=== PATIENT | female | born 1945 | race American Indian/Alaskan Native ===

== ENCOUNTER 2020-04-03 14:37 | Emergency (ER) | payer MEDICARE ==
[2020-04-03] MEDS ORDERED: ONDANSETRON 4 MG/2 ML INJ ONE (15:11)
[2020-04-03] MEDS ORDERED: ONDANSETRON 4 MG/2 ML INJ IV ONE (15:31)
[2020-04-03] MEDS ORDERED: HYDROmorphone 1 MG/1 ML INJ IV ONE ×2 (15:44→17:16)
--- NOTE | 2020-04-03 15:54 | Emergency Department Report ---
HPI - General Chief Complaint: Abdominal Pain Time Seen by Provider: 04/03/20 15:39 - HPI HPI: Room 6 The patient is a 74-year-old female presents with a chief complaint of abdominal pain. The patient states her symptoms began today while at the same she felt pain rise up from her abdomen and back. Patient states the pain is been constant and severe associated with nausea and vomiting. Patient denies fever or diarrhea. ED Past Medical Hx - Past Medical History Previous Medical History?: No - Surgical History Past Surgical History?: No - Family History Family history: no significant - Social History Smoking Status: Current Every Day Smoker Substance Use Type: None (Denies illicit drug use), Alcohol (Occasional) ED Review of Systems ROS: Stated complaint: ABD PAIN Other details as noted in HPI Constitutional: no symptoms reported. denies: fever Respiratory: no symptoms reported Endocrine: no symptoms reported Gastrointestinal: abdominal pain, nausea, vomiting. denies: diarrhea Physical Exam - Physical Exam Vital Signs: Vital Signs 04/03/20 15:00 Pulse Rate 100 H Respiratory 20 Rate Blood Pressure 220/92 [Right] Physical Exam: GENERAL: The patient is well-developed well-nourished female sitting on edge of bed appearing to be in moderate discomfort. [] HEENT: Normocephalic. Atraumatic. Extraocular motions are intact. Patient has moist mucous membranes. NECK: Supple. Trachea midline CHEST/LUNGS: Clear to auscultation. There is no respiratory distress noted. HEART/CARDIOVASCULAR: Regular. There is no tachycardia. There is no gallop rub or murmur. ABDOMEN: Abdomen is soft, with periumbilical and midepigastric discomfort to palpation. No pulsatile abdominal masses palpated. No abdominal bruits auscultated. Patient has normal bowel sounds. There is no abdominal distention. SKIN: There is no rash. There is no edema. There is no diaphoresis. NEURO: The patient is awake, alert, and oriented. The patient is cooperative. The patient has normal speech MUSCULOSKELETAL: There is bilateral CVA tenderness. There is no evidence of acute injury. ED Course Vital Signs 04/03/20 15:00 Pulse Rate 100 H Respiratory 20 Rate Blood Pressure 220/92 [Right] - Consultations Consultation #1: 04/03/20 17:16 Vascular surgery paged 04/03/20 17:[address] Araya- will contact partner and call back 04/03/20 18:[address] Araya-states it appears though the patient is dissecting into the thrombus and has an impending rupture. States patient should be transferred to another hospital as they do not manage thoracic aorta dissection at this hospital. Consultation #2: 04/03/20 18:22 [place] transfer line called 04/03/20 18:[address] Cuevas-will accept patient in transfer to [facility]. Request patient be flown to the hospital. Titrate labetalol for systolic less than 130 and a heart rate between 60-70 ED Medical Decision Making - Lab Data Result diagrams: 04/03/20 15:45 04/03/20 15:45 Laboratory Tests 04/03/20 04/03/20 04/03/20 15:45 15:45 17:52 WBC 12.5 H RBC 4.62 Hgb 13.8 Hct 42.2 MCV 91 MCH 30 MCHC 33 RDW 15.9 H Plt Count 312 Lymph % (Auto) 24.6 Terry % (Auto) 5.4 Eos % (Auto) 1.0 Baso % (Auto) 0.4 Lymph # (Auto) 3.1 Terry # (Auto) 0.7 Eos # (Auto) 0.1 Baso # (Auto) 0.0 Seg Neutrophils % 68.6 Seg Neutrophils # 8.6 H PT 14.1 INR 1.08 APTT 25.9 Sodium 141 Potassium 3.2 L Chloride 102.2 Carbon Dioxide 23 Anion Gap 19 BUN 13 Creatinine 1.0 Estimated GFR > 60 BUN/Creatinine Ratio 13 Glucose 179 H Calcium 10.6 H Total Bilirubin 0.70 AST 17 ALT 14 Alkaline Phosphatase 99 Total Creatine Kinase 76 CK-MB (CK-2) 2.0 CK-MB (CK-2) Rel Index 2.6 Troponin T < 0.010 Total Protein 7.0 Albumin 4.2 Albumin/Globulin Ratio 1.5 Lipase 37 - Radiology Data Radiology results: image reviewed (Chest x-ray) interpreted by me: Chest x-ray-no free air, no focal infiltrates, no pneumothorax - Differential Diagnosis Aortic dissection, pancreatitis, bowel perforation, renal colic, pyelonephr Critical Care Time: Yes Critical care time in (mins) excluding proc time.: 30 Critical care attestation.: If time is entered above; I have spent that time in minutes in the direct care of this critically ill patient, excluding procedure time. ED Disposition Clinical Impression: Acute abdominal pain, Aortic dissection, Hypertensive emergency Disposition: DC/TX-70 ANOTHER TYPE HLTHCARE Is pt being admited?: No Does the pt Need Aspirin: No Condition: Serious Instructions: Abdominal Pain (ED), Hypertension (ED) Time of Disposition: 18:58 (Awaiting transport)
[2020-04-03 16:01] LABS: Basophils % (Auto) 0.4 % (0.0-1.8); Eosinophils # (Auto) 0.1 K/mm3 (0.0-0.4); Hematocrit 42.2 % (30.3-42.9); Hemoglobin 13.8 gm/dl (10.1-14.3); Lymphocytes # (Auto) 3.1 K/mm3 (1.2-5.4); Lymphocytes % (Auto) 24.6 % (13.4-35.0); Mean Corpuscular HGB Conc 33 % (30-34); Mean Corpuscular Volume 91 fl (79-97); Monocytes # (Auto) 0.7 K/mm3 (0.0-0.8); Monocytes % (Auto) 5.4 % (0.0-7.3); Platelet Count 312 K/mm3 (140-440); Red Blood Count 4.62 M/mm3 (3.65-5.03); Red Cell Distribution Width 15.9 % (13.2-15.2)
[2020-04-03] MEDS ORDERED: METOCLOPRAMIDE 10 MG/2 ML INJ IV ONE (16:10)
[2020-04-03] MEDS ORDERED: METOCLOPRAMIDE 10 MG/2 ML INJ ONE (16:11)
[2020-04-03 16:23] LABS: Alanine Aminotransferase 14 units/L (7-56); Albumin 4.2 g/dL (3.9-5); BUN/Creatinine Ratio 13; Blood Urea Nitrogen 13 mg/dL (7-17); Calcium 10.6 mg/dL (8.4-10.2); Hemolysis Index 13
--- NOTE | 2020-04-03 16:23 | XRay Report ---
Chest single view INDICATION: Dyspnea IMPRESSION: The heart size is normal and the lungs are clear. No pleural effusion. Signer Name: Jr Rock MD Signed: 04/03/2020 4:18 PM Workstation Name: [id number]
[2020-04-03] MEDS ORDERED: labetaloL 200 MG in DEXTROSE 5% IN WATER 160 ML IV ONE ×3 (17:13→20:52)
--- NOTE | 2020-04-03 17:18 | Cat Scan Report ---
CT abdomen pelvis w con INDICATION / CLINICAL INFORMATION: Mid abdominal pain radiating to the back. TECHNIQUE: All CT scans at this location are performed using CT dose reduction for ALARA by means of automated e xposure control. COMPARISON: None available. FINDINGS: Mural thrombus is seen surrounding the descending thoracic aorta and proximal abdominal aorta. There is a small amount of contrast seen in this thrombus indicating probable leak. No free fluid is seen i n the pleural space or in the abdomen. There is very little perfusion of the left kidney. The spleen, right kidney and right adrenal gland are normal. There is mild prominence of the left adrenal gland. The pancreatic duct is mildly dilated although no mass or stone is seen in the pancreatic head. Smal l cysts are present in the liver. In the pelvis, no free fluid is seen. No enlarged lymph nodes are identified. Changes of diverticulos is are present. The bladder and the appendix are normal. No significant skeletal abnormality is seen. IMPRESSION: 1. Mural thrombus surrounding the distal descending thoracic aorta and proximal abdominal aorta with contrast in this thrombus indicating probable leak. 2. Very poor perfusion of the left kidney 3. Diverticulosis CRITICAL RESULT: Time of Discovery (MANUFACTURING MANAGEMENT ASSOCIATE/CDT): 1610 hours Time of Communication (MANUFACTURING MANAGEMENT ASSOCIATE/CDT): 1612 hours Licensed Practitioner Receiving Report: Stacey Sibley MD Read-Back Performed: Yes. Signer Name: Quintin Flores MD FACR Signed: 04/03/2020 5:13 PM Workstation Name: [email or web address]
[2020-04-03 18:06] LABS: INR 1.08 (0.87-1.13)
[2020-04-03 18:07] LABS: Partial Thromboplastin Time 25.9 Sec. (24.2-36.6)
[2020-04-03] MEDS ORDERED: POTASSIUM CHLORIDE ER 20 MEQ TAB PO ONE (19:37)
[2020-04-04 02:12] VITALS: BP 163/82
== END 2020-04-03 21:05 | disposition other institution (70) ==
LOC: ED 14:37
DX: I74.09 Other arterial embolism and thrombosis of abdominal aorta (principal); I74.8 Embolism and thrombosis of other arteries; I16.1 Hypertensive emergency; F17.200 Nicotine dependence, unspecified, uncomplicated
CPT/HCPCS: 36415; 71045; 74177; 80053; 82550; 82553; 83690; 84484; 85025; 85610; 85730; 96365; 96375; 96376; 99291; J1170; J2405; J2765; Q9967